=== PATIENT | male | born 1955 | race Two or more races ===

== ENCOUNTER 2021-08-13 18:18 | Emergency (ER) | payer OTHER ==
[~2021-08-13] VITALS: Ht 170.2 cm; Wt 76.2 kg
[~2021-08-13 18:18] MED LIST: TARKA 1/2401 BOTTLE PO
== END 2021-08-13 19:45 | disposition home or self-care (01) ==
LOC: ER 18:18
DX: B34.9 Viral infection, unspecified (principal)